=== PATIENT | male | born 1975 | race Caucasian/White ===

== ENCOUNTER 2016-11-19 23:37 | Emergency (ER) | payer SELFPAY ==
[~2016-11-19] VITALS: Ht 185.4 cm; Wt 109.0 kg
[2016-11-20] MEDS ORDERED: PredniSONE 20 MG TABLET PO ONE (00:30)
[2016-11-20 01:12] VITALS: BP 111/74
== END 2016-11-20 01:21 | disposition home or self-care (01) ==
LOC: EMS 23:38
DX: L50.9 Urticaria, unspecified (principal); F17.210 Nicotine dependence, cigarettes, uncomplicated
CPT/HCPCS: 99283; J7512